=== PATIENT | female | born 1965 | race Two or more races ===

== ENCOUNTER 2018-03-22 08:46 | Outpatient (CLI) | payer OTHER | END 2018-03-22 08:55 | disposition home or self-care (01) | LOC: RAD 501 08:46 | DX: J45.30 Mild persistent asthma, uncomplicated (principal); R07.1 Chest pain on breathing ==

== ENCOUNTER 2018-03-22 12:05 | Outpatient (CLI) | payer OTHER | END 2018-03-22 12:15 | disposition home or self-care (01) | LOC: TOM 12:05 | DX: R06.02 Shortness of breath (principal) ==

== ENCOUNTER 2018-03-28 09:36 | Outpatient (CLI) | payer OTHER | END 2018-03-28 09:44 | disposition home or self-care (01) | LOC: SONOGRAMA 09:36 | DX: E04.1 Nontoxic single thyroid nodule (principal) ==

== ENCOUNTER 2018-07-15 09:20 | Outpatient (CLI) | payer OTHER | END 2018-07-15 09:22 | disposition home or self-care (01) | LOC: RAD 09:20 | DX: J45.30 Mild persistent asthma, uncomplicated (principal); J98.11 Atelectasis ==

== ENCOUNTER 2019-01-16 12:03 | Outpatient (CLI) | payer OTHER | END 2019-01-16 12:05 | disposition home or self-care (01) | LOC: RAD 12:03 | DX: J11.1 Influenza due to unidentified influenza virus with other respiratory manifestations (principal); J45.30 Mild persistent asthma, uncomplicated ==

== ENCOUNTER 2022-01-13 10:22 | Outpatient (CLI) | payer OTHER | END 2022-01-13 10:42 | disposition home or self-care (01) | LOC: PPH VACUNA 10:22 | PROVIDERS: ATTEND Emergency Medicine Pediatric Emergency Medicine | DX: Z23 Encounter for immunization (principal) ==

== ENCOUNTER 2022-05-10 09:30 | Outpatient (CLI) | payer OTHER | END 2022-05-10 09:40 | disposition home or self-care (01) | LOC: PPH VACUNA 09:30 | PROVIDERS: ATTEND Emergency Medicine Pediatric Emergency Medicine | DX: Z23 Encounter for immunization (principal) ==